=== PATIENT | female | born 1990 | race African-American/Black ===

== ENCOUNTER 2024-10-22 06:01 | Emergency (ER) | payer SELFPAY ==
[~2024-10-22] VITALS: Ht 180.3 cm; Wt 79.4 kg
[2024-10-22] MEDS ORDERED: FLUT16SP16 BNOSTRILS (06:39)
[2024-10-22 06:43] VITALS: BP 128/77; TEMP 98.3; O2SAT 97
== END 2024-10-22 06:53 | disposition home or self-care (01) ==
LOC: ER 06:04
DX: J20.9 Acute bronchitis, unspecified (principal); Z88.0 Allergy status to penicillin